=== PATIENT | male | born 1995 | race Caucasian/White ===

== ENCOUNTER 2018-11-02 13:52 | Emergency (ER) | payer MEDICAID ==
[2018-11-02 14:05] VITALS: BP 146/96
== END 2018-11-02 15:36 | disposition left against medical advice (07) ==
LOC: ED 13:52
DX: R22.9 Localized swelling, mass and lump, unspecified (principal); M79.641 Pain in right hand; Z53.21 Procedure and treatment not carried out due to patient leaving prior to being seen by health care provider